=== PATIENT | female | born 1970 | race Caucasian/White ===

== ENCOUNTER 2018-08-27 06:50 | Emergency (ER) | payer SELFPAY ==
[2018-08-27] MEDS: DIPHTH/TET/ACEL PERTUSS (ADULT) 0.5 ML VIAL IM* (07:10)
[2018-08-27] MEDS: LIDOCAINE 1% (MDV) 20 ML INJ SC (07:11)
[2018-08-27] MEDS: IBUPROFEN 800 MG TAB PO (07:49)
== END 2018-08-27 07:53 | disposition home or self-care (01) ==
LOC: FTE 06:50
DX: S01.81XA Laceration without foreign body of other part of head, initial encounter (principal); F17.210 Nicotine dependence, cigarettes, uncomplicated; S11.91XA Laceration without foreign body of unspecified part of neck, initial encounter; W26.8XXA Contact with other sharp object(s), not elsewhere classified, initial encounter; Y92.9 Unspecified place or not applicable; Z23 Encounter for immunization
CPT/HCPCS: 12013; 90471; 90715; 99283-25

== ENCOUNTER 2018-09-03 11:25 | Emergency (ER) | payer OTHER | END 2018-09-03 15:08 | disposition home or self-care (01) | LOC: FTE 11:25 | DX: Z48.02 Encounter for removal of sutures (principal) | CPT/HCPCS: 99281 ==